=== PATIENT | female | born 1990 | race African-American/Black ===

== ENCOUNTER → 2018-06-16 | Outpatient (REF) | payer OTHER | LOC: M LAB REF 10:57 | PROVIDERS: ATTEND Advanced Practice Midwife | DX: Z12.4 Encounter for screening for malignant neoplasm of cervix (principal) ==

== ENCOUNTER → 2020-07-25 | Outpatient (REF) | payer OTHER | LOC: M SFHCWAGY 13:27 | PROVIDERS: ATTEND Advanced Practice Midwife | DX: Z12.4 Encounter for screening for malignant neoplasm of cervix (principal) ==

== ENCOUNTER → 2020-08-06 | Outpatient (CLI) | payer OTHER ==
[2020-08-06 10:35] LABS: BASO % 0.4 % (0.0-1.0); EOS # 0.1 10^3/uL (0.0-0.5); EOS % 0.7 % (0.0-3.0); HEMATOCRIT 36.3 % (36.0-47.0); LYMPH # 2.1 10^3/uL (1.5-5.0); LYMPH % 19.8 % (24.0-44.0); MEAN CORPUSCULAR HEMOGLOBIN 26.5 pg (27.0-33.0); MEAN CORPUSCULAR HGB CONC 33.1 g/dl (32.0-36.5); MEAN CORPUSCULAR VOLUME 80.1 fl (80.0-96.0); MONO # 0.7 10^3/uL (0.0-0.8); MONO % 6.2 % (2.0-8.0); NEUTROPHILS # 7.8 10^3/uL (1.5-8.5); NEUTROPHILS % 72.3 % (36.0-66.0); PLATELET COUNT, AUTOMATED 261 10^3/uL (150-450); RED BLOOD COUNT 4.53 10^6/uL (4.00-5.40); WHITE BLOOD COUNT 10.7 10^3/uL (4.0-10.0)
[2020-08-06 10:49] LABS: HEMOGLOBIN A1c 5.4 %
[2020-08-06 11:02] LABS: CREATININE,RANDOM URINE 78.9 MG/DL; TOTAL PROTEIN,RANDOM URINE 7.3 MG/DL (0.0-12.0)
[2020-08-06 11:04] LABS: ALT/SGPT 20 U/L (12-78); BILIRUBIN,TOTAL 0.8 MG/DL (0.2-1.0); CREATININE FOR GFR 0.61 MG/DL (0.55-1.30); GLOMERULAR FILTRATION RATE > 60.0 (>60); GLUCOSE CHALLENGE TEST 1 HOUR 95 MG/DL (LESS THAN 140); LDH LACTATE DEHYDROGENASE 169 U/L (84-246)
[2020-08-06 11:47] LABS: HEPATITIS C VIRUS ABY INDEX < 0.0 INDEX (<0.8); HIV 1&2 SCREEN CENTAUR NEGATIVE (NEGATIVE)
[2020-08-08 15:08] LABS: HSV TYPE I IgG SPECIFIC <0.91 index (0.00-0.90); HSV TYPE I IgM AB <1:10 titer (<1:10); HSV TYPE II IgG SPECIFIC >23.60 index (0.00-0.90); HSV TYPE II IgM ABY <1:10 titer (<1:10)
== END ==
LOC: M PLALAB 08:18
PROVIDERS: ATTEND Advanced Practice Midwife
DX: Z34.81 Encounter for supervision of other normal pregnancy, first trimester (principal); Z3A.01 Less than 8 weeks gestation of pregnancy

== ENCOUNTER → 2020-08-22 | Outpatient (REF) | payer OTHER | LOC: M SFHCWAGY 13:34 | PROVIDERS: ATTEND Advanced Practice Midwife | DX: O99.211 Obesity complicating pregnancy, first trimester (principal) ==

== ENCOUNTER → 2020-09-20 | Outpatient (REF) | payer OTHER | LOC: M SFHCWAGY 12:50 | PROVIDERS: ATTEND Advanced Practice Midwife | DX: O99.212 Obesity complicating pregnancy, second trimester (principal); E66.9 Obesity, unspecified; Z3A.00 Weeks of gestation of pregnancy not specified ==

== ENCOUNTER → 2020-10-11 | Outpatient (CLI) | payer OTHER ==
--- NOTE | 2020-10-11 09:07 | REP ---
INDICATION: ANATOMY. KASANDRA 10 March 2021. COMPARISON: None. TECHNIQUE: Transabdominal obstetric sonography. FINDINGS: Scanning through the gravid uterus demonstrates a viable single intrauterine gestation in cephalic lie. motion is observed and heart rate is recorded at 153 beats per minute. A posterior placenta is seen, grade 1, without evidence of placenta previa. Closed cervical length is measured at 3.5 cm transabdominally. No extrauterine abnormality is observed. Amniotic fluid is subjectively normal. Following anatomic structures are identified felt to be unremarkable: Facial profile, four-chamber heart with left and right ventricular outflow tract views, diaphragm, left-sided stomach, abdominal wall cord insertion, right and left kidney, urinary bladder, spine, upper and lower extremities, three-vessel cord. The following anatomic structures are less than optimally seen: cranium and intracranial contents, nose and lips.. Biometry chart: BPD 4.4 cm, 19 weeks 2 days Head circumference 16.9 cm, 19 weeks 4 days Abdominal circumference 13.6 cm, 19 weeks 0 days Femur length 2.8 cm, 18 weeks 3 days Humeral length 2.7 cm, 18 weeks 4 days HC AC ratio normal 1.24 Cephalic index normal 0.71 Estimated weight 261 g, 0 lb 9 oz, sixty-fourth percentile for 18 weeks 4 days IMPRESSION: Viable single intrauterine gestation at 19 weeks 0 days by today's composite sonographic criteria. KASANDRA by today's sonography 07 March 2021. No complication identified. Expected gestational age estimate based on known KASANDRA is 18 weeks 4 days KASANDRA 10 March 2021. Less than optimal visualize is a hansen of the cranium and nose and lips due to position.. <Electronically signed by Trevor Irizarry > 10/11/20 [id number]
== END ==
LOC: M WHC 07:59
PROVIDERS: ATTEND Advanced Practice Midwife
DX: Z34.82 Encounter for supervision of other normal pregnancy, second trimester (principal)

== ENCOUNTER → 2020-10-18 | Outpatient (CLI) | payer OTHER | LOC: M WHC 08:17 | PROVIDERS: ATTEND Obstetrics & Gynecology | DX: Z34.82 Encounter for supervision of other normal pregnancy, second trimester (principal); Z3A.19 19 weeks gestation of pregnancy ==

== ENCOUNTER → 2020-11-11 | Outpatient (CLI) | payer OTHER ==
--- NOTE | 2020-11-11 09:40 | REP ---
INDICATION: F/U ANATOMY COMPARISON: 10/11/2020 TECHNIQUE: Transabdominal obstetrical ultrasound with color Doppler evaluation. FINDINGS: Examination demonstrates a single live intrauterine in cephalic presentation. motion is identified by technologist. Placenta is noted posterior and grade 1 without evidence for placenta previa or abruption. Amniotic fluid volume is normal. Cervix measures 3.4 cm in length and appears closed.. Selected gestational age: 23 weeks 0 days with KASANDRA 03/10/2021. Gestational age by current measurements 23 weeks 5 days with KASANDRA 03/05/2021. FHR equals 140 beats per minute. Estimated weight 628 grams (57thpercentile). Anatomical assessment demonstrates normal structures including cranium, choroid plexus, cavum, cerebellum/posterior fossa, and nose/lips. IMPRESSION: Single live intrauterine in cephalic presentation demonstrating appropriate interval growth. In conjunction with prior examination anatomical assessment is complete and normal. <Electronically signed by Henry Aragon > 11/11/20 [id number]
== END ==
LOC: M WHC 08:02
PROVIDERS: ATTEND Obstetrics & Gynecology
DX: Z34.82 Encounter for supervision of other normal pregnancy, second trimester (principal)

== ENCOUNTER → 2020-11-25 | Outpatient (REF) | payer OTHER ==
[2020-11-25 15:04] LABS: HEMATOCRIT 32.5 % (36.0-47.0); HEMOGLOBIN 10.8 g/dl (12.0-15.5); MEAN CORPUSCULAR HEMOGLOBIN 27.8 pg (27.0-33.0); MEAN CORPUSCULAR HGB CONC 33.2 g/dl (32.0-36.5); MEAN CORPUSCULAR VOLUME 83.5 fl (80.0-96.0); PLATELET COUNT, AUTOMATED 230 10^3/uL (150-450); RED BLOOD COUNT 3.89 10^6/uL (4.00-5.40); WHITE BLOOD COUNT 11.7 10^3/uL (4.0-10.0)
== END ==
LOC: M PLALAB 08:39
PROVIDERS: ATTEND Specialist
DX: Z34.02 Encounter for supervision of normal first pregnancy, second trimester (principal)

== ENCOUNTER → 2021-02-14 | Outpatient (CLI) | payer OTHER ==
--- NOTE | 2021-02-14 15:29 | REP ---
INDICATION: GROWTH. COMPARISON: 11/11/2020. TECHNIQUE: Real-time sonographic evaluation of the gravid uterus performed. FINDINGS: Estimated gestational age is36 weeks 4 days , EDC 03/10/2021. Today's measurements indicate appropriate growth. Presentation: Cephalic Placenta posterior, grade 2, without evidence of placenta previa. heart rate is recorded at 144 beats per minute. Amniotic fluid is subjectively normal. LEE ANN 9.9, normal 7.6-24.6. Closed cervical length is measured at 3.8 cm. Biometry chart: BPD: 95 mm, 38 weeks 6 days, 81st percentile. HC: 335 mm, 38 weeks 2 days, 79th percentile AC: 351 mm, 39 weeks 0 days, 86th percentile Femur length: 75 mm, 38 weeks 4 days, 79th percentile HC to AC ratio: 0.95, normal range 0.92-1.11. Estimated weight: 3594g, greater than 97th percentile. IMPRESSION: Viable single intrauterine gestation as above. <Electronically signed by Vladimir Gandhi > 02/14/21 [id number]
== END ==
LOC: M WHC 14:27
PROVIDERS: ATTEND Obstetrics & Gynecology
DX: O26.843 Uterine size-date discrepancy, third trimester (principal); Z3A.36 36 weeks gestation of pregnancy

== ENCOUNTER → 2021-02-14 | Outpatient (REF) | payer OTHER | LOC: M SFHCWAGY 13:02 | PROVIDERS: ATTEND Obstetrics & Gynecology | DX: Z36.85 Encounter for antenatal screening for Streptococcus B (principal); Z3A.36 36 weeks gestation of pregnancy ==

== ENCOUNTER 2021-03-01 02:42 | Inpatient (IN) | payer OTHER ==
[~2021-03-01] VITALS: Ht 162.6 cm; Wt 133.6 kg
[2021-03-01] VITALS (52 sets, daily range): BP systolic 109–151; BP diastolic 56–99
[2021-03-01] MEDS ORDERED: ACYC1TAB PO (03:22)
[2021-03-01] MEDS ORDERED: VALT500T PO (03:22)
[2021-03-01] MEDS ORDERED: PRENTAB9 PO (03:24)
[2021-03-01] MEDS ORDERED: HOME MED LIST COMPLETE! XX SCH (03:25)
[2021-03-01] MEDS ORDERED: PENICILLIN G POTASSIUM IV 5 MU in D5W MINI-BAG PLUS 100 ML IV STA ×2 (03:52→06:45)
[2021-03-01] MEDS ORDERED: OXYTOCIN DRIP 30 UNITS in IV 1 EA IV SCH (03:55)
[2021-03-01] MEDS ORDERED: TRANEXAMIC ACID INJection 1,000 MG in NS 100 ML IV PRN (03:55)
[2021-03-01] MEDS ORDERED: CARBOPROST TROMETHAMINE 250 MCG/ML AMP IM PRN (03:55)
[2021-03-01] MEDS ORDERED: OXYTOCIN DRIP 30 UNITS in IV 1 EA IV PRN ×4 (03:55)
[2021-03-01] MEDS ORDERED: OXYTOCIN INJ 10 UNITS/ML VIAL (J2590) IM PRN (03:55)
[2021-03-01] MEDS ORDERED: METHYLERGONOVINE MALEATE 0.2 MG/ML VIAL (J2210) IM PRN (03:55)
[2021-03-01] MEDS ORDERED: LIDOCAINE 1% MDV 20ML VIAL INFIL PRN (03:55)
[2021-03-01 04:32] LABS: HEMATOCRIT 32.8 % (36.0-47.0); HEMOGLOBIN 10.9 g/dl (12.0-15.5); MEAN CORPUSCULAR HEMOGLOBIN 25.7 pg (27.0-33.0); MEAN CORPUSCULAR HGB CONC 33.2 g/dl (32.0-36.5); MEAN CORPUSCULAR VOLUME 77.4 fl (80.0-96.0); PLATELET COUNT, AUTOMATED 242 10^3/uL (150-450); RED BLOOD COUNT 4.24 10^6/uL (4.00-5.40); WHITE BLOOD COUNT 13.1 10^3/uL (4.0-10.0)
[2021-03-01] MEDS: LR 1,000 ML IV SCH ×2 (05:11→11:52)
[2021-03-01] MEDS ORDERED: PROMETHAZINE INJ 25 MG/ML VIAL (J2550) IV ONE (06:45)
[2021-03-01] MEDS ORDERED: BUTORPHANOL 2 MG/ML INJ (J0595) IV ONE (06:45)
[2021-03-01] MEDS ORDERED: PENICILLIN G POTASSIUM IV 2.5 MU in IV 1 EA IV SCH (07:55)
--- NOTE | 2021-03-01 08:33 | HPE ---
HISTORY AND PHYSICAL DATE OF ADMISSION: 03/01/2021 SUBJECTIVE: Itzel is a 30-year-old, 1, para 0, at 38 and 5/7 weeks gestation with an EDC of 03/10/2021 based on first trimester ultrasound. She presents to Labor and Delivery today with a reported onset of uncomfortable contractions at 0200 following a gush of fluid at 0145. She does deny vaginal bleeding. The fetus has been active. Her care was [facility] at [facility] in the first trimester. 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 She has been taking Valtrex prophylactically. Obesity. Large for gestational age fetus. GBS positive. OBSTETRIC HISTORY: Primigravida. OBSTETRIC LABS: B positive, antibody screen negative, syphilis negative, and chlamydia negative Hepatitis B negative. Hepatitis C negative. HIV negative. Rubella immune. Gestational diabetic screening normal at 113 and her GBS is positive. PAST MEDICAL HISTORY: 1. Obesity. 2. Polycystic ovarian syndrome. 3. Shingles. PAST SURGICAL HISTORY: 1. Gallbladder. 2. Nahma tooth extraction. FAMILY HISTORY: Diabetes, hypothyroid, reflux. SOCIAL HISTORY: The patient is a nonsmoker. She denies alcohol and drug use. History of HSV 2. Denies history of abuse, physical, sexual and emotional. ALLERGIES: No known drug allergies. CURRENT MEDICATIONS: vitamin. OBJECTIVE: Temp 98.9, pulse 106. BP is 125/80. She is alert and oriented x3. She does not appear uncomfortable with her contractions. The heart rate is 135 with moderate variability, positive accelerations, negative decelerations. Contractions are palpating mild and are every 2-4 minutes. Her abdomen is gravid, cephalic presentation. Estimated weight 4000 gm. Sterile speculum exam: Positive pooling, positive Valsalva, positive nitrazine and positive fern. Sterile vaginal exam: 1 cm dilated, 50% effaced, -3 station. ASSESSMENT: Intrauterine at 38-5/7 weeks. heart rate is category 1 with premature rupture of membranes, not in active labor. PLAN: Admit the patient to labor and delivery, out of bed ad chelle, clear liquid diet, routine laboratories. Plan to start IV Pitocin to induce her labor. Risks, benefits and alternatives have been reviewed with the patient and her partner. All of their questions have been answered. She has been verbally consented for emergency surgery and blood products if they are necessary. I do anticipate labor.
[2021-03-01] MEDS ORDERED: **PENDING PCN ENTRY XX SCH (09:00)
[2021-03-01] MEDS: PENICILLIN G POTASSIUM IV 2.5 MU in IV 1 EA IV SCH ×3 (11:02→18:45)
[2021-03-01] MEDS ORDERED: FENTANYL 2MCG/ML ROPIVACAINE 0.2% IN 0.9% NACL 100ML IVBAG As Ordered ONE ×2 (12:11→19:45)
[2021-03-01] MEDS ORDERED: ONDANSETRON 4MG/2ML VIAL IV PRN ×2 (13:00→23:40)
[2021-03-01] MEDS ORDERED: LACTATED RINGER'S 1000 ML IV PRN (13:00)
[2021-03-01] MEDS ORDERED: EPIDURAL COMMENT XX SCH (13:00)
[2021-03-01] MEDS ORDERED: FENTANYL/ROPIVACAINE/NACL BAG 100 ML EPIDURAL SCH (13:00)
[2021-03-01] MEDS ORDERED: EPIDURAL/PCA KEYS XX PRN (13:00)
[2021-03-01] MEDS ORDERED: ePHEDrine SULFATE 25 MG/5 ML(5MG/ML) SYRINGE IV PRN (13:00)
[2021-03-01] MEDS ORDERED: REFRIGERATOR IV KEYS XX PRN (13:00)
[2021-03-01] MEDS ORDERED: diphenhydrAMINE 50MG/ML VIAL (J1200) IV PRN (13:00)
[2021-03-01] MEDS ORDERED: NALOXONE INJ 0.4MG/1ML VIAL (J2310 PER 1MG) IV PRN (13:00)
--- NOTE | 2021-03-01 16:45 | IPNPDOC ---
Obstetrical Progress Note Date of Service Mar 01, 2021 Subjective pt is more comfortable s/p epidural Objective Vital Signs Date Time Temp Pulse Resp B/P (MAP) Pulse Ox O2 Delivery O2 Flow Rate FiO2 03/01/21 13:46 83 18 121/59 (79) 03/01/21 13:28 97.5 Assessment Heart Rate (FHR): 140 Variability: Moderate Accelerations: Present Decelerations: None Heart Rate Tracing: Category I Tocometer Contractions: Yes Frequency: regular, every 1-3 min. Sterile Vaginal Examination Dilation: 4 cm Effacement (%): 100% Station: -1, 0 Cervical Consistency: Soft Cervical Position: Anterior Postion/Presentation: Cephalic presentation Assessment and Plan Age: 30 : 1 Term: 0 Status: Reassuring Group B Streptococcus: Positive Anticipate: Vaginal Delivery Additional Comments con't expectant management EVER LAGOS MD Mar 01, 2021 16:45
[2021-03-01] MEDS ORDERED: ceFAZolin 2 GM/D5W 50 ML IV BAG (J0690 PER 500MG) As Ordered ONE (23:17)
[2021-03-01] MEDS ORDERED: OXYTOCIN 30 UNITS IN 0.9% NaCl 500ML IV BAG (J2590) As Ordered ONE (23:17)
[2021-03-01] MEDS ORDERED: RHOGAM 300 MCG (1500 IU) INJ (J2790) IM SCH (23:40)
[2021-03-01] MEDS ORDERED: METHYLERGONOVINE MALEATE 0.2 MG TAB PO PRN (23:40)
[2021-03-01] MEDS ORDERED: IBUPROFEN 600MG TAB PO PRN (23:40)
[2021-03-01] MEDS ORDERED: MEASLES,MUMPS,RUBELLA VACCINE INJ (MMR-II) (90707) SC SCH (23:40)
[2021-03-01] MEDS ORDERED: DIBUCAINE 1% OINTMENT 30GM TOP PRN (23:40)
[2021-03-01] MEDS ORDERED: ceFAZolin SOD 2 GM in IV 1 EA IV ONE (23:40)
[2021-03-01] MEDS ORDERED: DOCUSATE SODIUM 100MG CAPSULE PO PRN (23:40)
--- NOTE | 2021-03-01 23:56 | DNPDOC ---
[facility] Delivery Note Delivery Note DATE OF DELIVERY: 03/01/21 PREDELIVERY DIAGNOSIS: 38-5/7 weeks' gestation and labor. POST DELIVERY DIAGNOSIS: Delivered. PROCEDURE: Spontaneous vaginal delivery. CYLINDER GRINDER: Dr. Ever Lagos ANESTHESIA: epidural. ESTIMATED BLOOD LOSS: 500 mL. FINDINGS: 8 pound 4 ounce female infant, Score 7/9 DELIVERY SUMMARY: Patient is a 30-year-old 1 now para 1 who was admitted to labor and delivery for premature rupture of membranes. She was initially 1/50/-3 and was started on RDP due to the fact that she was having persistent contractions q2-3min. The patient progressed to 4/100/-1 and received an epidural. She then progressed nicely to fully dilated and began pushing with good effort at +2 station. With excellent maternal effort, the head was delivered in the WALESKA position, however, a shoulder dystocia was identified when the anterior shoulder failed to deliver with typcial maneuvers. The patient was immediately placed in Rich position and NICU support was called for. Suprapubic pressure was applied and the Wood's screw maneuver was applied. The anterior shoulder then delivered, and the body delivered atraumatically over an intact perineum. In total, this lasted 50 seconds. The cord was clamped and cut and the infant was handed to the baby nurse. Attention was turned to the patient and the placenta was delivered with expression and manual traction. However, trailing membranes were noted and brisk bleeding from the uterus occurred. Bimanual exam showed retained membranes which were removed from the posterior wall of the uterus. Methergine was given IM. The patient was noted to have a periclitoral tear which was repaired with 4.0 vicryl suture. 4cc of lidocaine were given. Sponge and sharp count correct. Good hemostasis and uterine tone noted. EVER LAGOS MD Mar 01, 2021 23:56
[2021-03-02] VITALS (8 sets, daily range): BP systolic 116–140; BP diastolic 60–89
[2021-03-02 06:49] LABS: HEMATOCRIT 26.2 % (36.0-47.0); MEAN CORPUSCULAR HGB CONC 33.6 g/dl (32.0-36.5); MEAN CORPUSCULAR VOLUME 77.3 fl (80.0-96.0); PLATELET COUNT, AUTOMATED 216 10^3/uL (150-450); RED BLOOD COUNT 3.39 10^6/uL (4.00-5.40); WHITE BLOOD COUNT 21.3 10^3/uL (4.0-10.0)
[2021-03-02 06:56] LABS: HEMOGLOBIN 8.8 g/dl (12.0-15.5)
[2021-03-02] MEDS: PRENATAL VITAMINS CHEWABLE TABLET PO SCH (08:00)
[2021-03-02] MEDS: ACETAMINOPHEN 500 MG TAB PO PRN ×2 (08:01→23:50)
--- NOTE | 2021-03-02 08:39 | IPNPDOC ---
Progress Note Date of Service: Mar 02, 2021 Day#: 1 Progress Note SUBJECT: Patient is a 30-year-old G 1 P 1 status post spontaneous vaginal delivery complicated by shoulder dystocia at 38 -5/7 weeks' doing well day #1. She has been ambulating, voiding spontaneously without issue and tolerating regular diet. Breast feeding without issue. Reports lochia is like a normal period. Patient is ambulating well. Reports some cramping, well controlled with medication. Voiding and ambulating without difficulty. Discussed shoulder dystocia with patient in detail including maneuvers used to deliver . Reviewed risk for future and discussed possibility of primary section for future pregnancies. All questions were asked and answered and patient expressed understanding. OBJECTIVE: VITAL SIGNS: Within normal limits, afebrile. Alert and oriented times three. Breath sounds clear to auscultation. Heart rate: Regular rate and rhythm, no murmurs, rubs or gallops. Abdomen: Fundus firm at U-2. Soft, NTTP. Minimal to moderate lochia. ASSESSMENT: Patient is a 30-year-old G 1 P 1 status post spontaneous vaginal delivery complicated by 52nd shoulder dystocia after presenting to labor and delivery with premature rupture of membranes. Doing well on day 1. Vitals within normal limits, afebrile, hemodynamically stable with no evidence of infection. PLAN: 1. Discharge to home tomorrow. 2. Tylenol and Motrin for pain. 3. Encourage breast feeding and ambulation. 4. Reviewed contraception and patient is still undecided 5. Routine PP visit in 6 weeks in clinic. 6. Discussed return precautions at length. VS, I&O, 24H, Arnel Vital Signs/I&O Vital Signs Date Time Temp Pulse Resp B/P (MAP) Pulse Ox O2 Delivery O2 Flow Rate FiO2 03/02/21 06:00 97.6 85 18 140/89 (106) 99 Room Air I&O- Last 24 Hours up to 6 AM 03/02/21 06:00 Intake Total 5375 ml Output Total 2500 ml Balance 2875 ml Laboratory Data 24H LABS Laboratory Tests 2 03/02/21 06:29: Nucleated Red Blood Cells % (auto) 0.0 CBC/BMP Laboratory Tests 03/02/21 06:29 EVER LAGOS MD Mar 02, 2021 08:39
[2021-03-02] MEDS ORDERED: PRENATAL VITAMINS CHEWABLE TABLET PO SCH (09:00)
[2021-03-03 06:00] VITALS: BP 124/67
[2021-03-03] MEDS ORDERED: INFLUENZA QUADRIVALENT PF VACCINE 0.5ML SYRINGE IM SCH (07:00)
[2021-03-03] MEDS: PRENATAL VITAMINS CHEWABLE TABLET PO SCH (09:17)
[2021-03-03] MEDS ORDERED: IBUP-1022 PO (11:10)
[2021-03-03] MEDS ORDERED: ACET-683 PO (11:10)
== END 2021-03-03 15:35 | disposition home or self-care (01) | DRG 541 ==
LOC: M LDO 02:42 → M LDI 03:45 → M OBS 03-02 01:50
PROVIDERS: ADMIT Advanced Practice Midwife; ATTEND Advanced Practice Midwife
PROC: 10E0XZZ Delivery of Products of Conception, External Approach (ICD-10-PCS; principal; 2021-03-01)
PROC: 10D17Z9 Manual Extraction of Products of Conception, Retained, Via Natural or Artificial Opening (ICD-10-PCS; 2021-03-01)
PROC: 0HQ9XZZ Repair Perineum Skin, External Approach (ICD-10-PCS; 2021-03-01)
DX: O42.02 Full-term premature rupture of membranes, onset of labor within 24 hours of rupture (principal); O72.2 Delayed and secondary postpartum hemorrhage; E66.9 Obesity, unspecified; O99.284 Endocrine, nutritional and metabolic diseases complicating childbirth; E28.2 Polycystic ovarian syndrome; Z37.0 Single live birth; Z3A.38 38 weeks gestation of pregnancy; O99.824 Streptococcus B carrier state complicating childbirth; O99.214 Obesity complicating childbirth; O66.0 Obstructed labor due to shoulder dystocia; O70.0 First degree perineal laceration during delivery

== ENCOUNTER → 2023-01-04 | Outpatient (CLI) | payer OTHER ==
[~2023-01-04] MED LIST: ACET-683 PO; ACYC1TAB PO; IBUP-1022 PO; PRENTAB9 PO; VALT500T PO
[2023-01-04 11:46] LABS: TOTAL PROTEIN,RANDOM URINE 7.1 MG/DL (0.0-14.0)
[2023-01-04 11:51] LABS: CREATININE,RANDOM URINE 137.6 MG/DL
== END ==
LOC: M PLALAB 08:20
PROVIDERS: ATTEND Obstetrics & Gynecology
DX: O10.919 Unspecified pre-existing hypertension complicating pregnancy, unspecified trimester (principal); Z3A.00 Weeks of gestation of pregnancy not specified

== ENCOUNTER → 2023-01-18 | Outpatient (CLI) | payer OTHER | LOC: M WHC 07:06 | PROVIDERS: ATTEND Obstetrics & Gynecology | DX: Z34.92 Encounter for supervision of normal pregnancy, unspecified, second trimester (principal) ==

== ENCOUNTER → 2023-02-11 | Outpatient (CLI) | payer OTHER ==
[2023-02-11 11:27] LABS: BASO % 0.3 % (0.0-1.0); EOS # 0.2 10^3/uL (0.0-0.5); EOS % 1.8 % (0.0-3.0); HEMATOCRIT 31.3 % (36.0-47.0); HEMOGLOBIN 10.4 g/dl (12.0-15.5); LYMPH # 2.2 10^3/uL (1.5-5.0); LYMPH % 19.7 % (24.0-44.0); MEAN CORPUSCULAR HEMOGLOBIN 26.3 pg (27.0-33.0); MEAN CORPUSCULAR HGB CONC 33.2 g/dl (32.0-36.5); MEAN CORPUSCULAR VOLUME 79.2 fl (80.0-96.0); MONO # 0.6 10^3/uL (0.0-0.8); MONO % 5.3 % (2.0-8.0); NEUTROPHILS # 8.3 10^3/uL (1.5-8.5); NEUTROPHILS % 72.5 % (36.0-66.0); PLATELET COUNT, AUTOMATED 224 10^3/uL (150-450); RED BLOOD COUNT 3.95 10^6/uL (4.00-5.40); WHITE BLOOD COUNT 11.4 10^3/uL (4.0-10.0)
[2023-02-11 11:49] LABS: THYROID STIMULATING HORMONE 0.961 uIU/ML (0.55-4.78)
[2023-02-11 11:52] LABS: ALKALINE PHOSPHATASE 82 U/L (46-116); ALT/SGPT 22 U/L (7.0-40); AST/SGOT 10 U/L (<34); BILIRUBIN,TOTAL 0.5 MG/DL (0.3-1.2); BLOOD UREA NITROGEN < 5 MG/DL (9-23); CALCIUM LEVEL 8.9 MG/DL (8.5-10.1); CARBON DIOXIDE LEVEL 24 MMOL/L (20-31); CHLORIDE LEVEL 106 MMOL/L (98-107); CHOLESTEROL LEVEL 182 MG/DL (<200); CHOLESTEROL RISK RATIO 2.91 (<5); CREATININE FOR GFR 0.54 MG/DL (0.55-1.30); GLOMERULAR FILTRATION RATE > 60.0 (>60); GLUCOSE, FASTING 71 MG/DL (60-100); HDL CHOLESTEROL 62.4 MG/DL (>40); LDL CHOLESTEROL 95.6 MG/DL (<100); NON-HDL-C 119.6 MG/DL; SODIUM LEVEL 138 MMOL/L (136-145); TOTAL PROTEIN 6.3 G/DL (5.7-8.2); TRIGLYCERIDES LEVEL 120 MG/DL (<150)
== END ==
LOC: M PLALAB 09:00
PROVIDERS: ATTEND Physician Assistant
DX: I10 Essential (primary) hypertension (principal); E78.2 Mixed hyperlipidemia

== ENCOUNTER → 2023-03-16 | Outpatient (CLI) | payer OTHER | LOC: M WHC 09:24 | PROVIDERS: ATTEND Obstetrics & Gynecology | DX: Z34.82 Encounter for supervision of other normal pregnancy, second trimester (principal) ==

== ENCOUNTER → 2023-03-16 | Outpatient (CLI) | payer OTHER ==
[2023-03-16 14:21] LABS: HEMOGLOBIN 10.1 g/dl (12.0-15.5); MEAN CORPUSCULAR HEMOGLOBIN 25.9 pg (27.0-33.0); MEAN CORPUSCULAR HGB CONC 32.6 g/dl (32.0-36.5); MEAN CORPUSCULAR VOLUME 79.5 fl (80.0-96.0); PLATELET COUNT, AUTOMATED 232 10^3/uL (150-450)
[2023-03-16 16:09] LABS: GC DNA AMPLIFICATION NEGATIVE (NEGATIVE)
== END ==
LOC: M PLALAB 10:33
PROVIDERS: ATTEND Obstetrics & Gynecology
DX: Z34.92 Encounter for supervision of normal pregnancy, unspecified, second trimester (principal)

== ENCOUNTER → 2023-05-10 | Outpatient (CLI) | payer OTHER | LOC: M RAD 11:13 | PROVIDERS: ATTEND Obstetrics & Gynecology | DX: O10.913 Unspecified pre-existing hypertension complicating pregnancy, third trimester (principal); Z3A.35 35 weeks gestation of pregnancy ==

== ENCOUNTER → 2023-05-12 | Outpatient (REF) | payer OTHER | LOC: M PLALAB 11:02 | PROVIDERS: ATTEND Advanced Practice Midwife | DX: Z36.85 Encounter for antenatal screening for Streptococcus B (principal); Z34.93 Encounter for supervision of normal pregnancy, unspecified, third trimester ==

== ENCOUNTER 2023-06-01 07:30 | Inpatient (IN) | payer OTHER ==
[~2023-06-01] VITALS: Ht 160 cm; Wt 138.6 kg
[~2023-06-01 07:30] MED LIST changes: +COLA100C5 PO; +ECOT81TA5 PO; +IRON65TA2 PO; +LABE100T71 PO
[2023-06-03] VITALS (18 sets, daily range): BP systolic 116–141; BP diastolic 57–82; TEMP 97.1; O2SAT 95–99
[2023-06-03] MEDS ORDERED: LACTATED RINGER'S 1000 ML IV STA (05:27)
[2023-06-03] MEDS ORDERED: LR 1,000 ML IV SCH ×2 (05:30→09:40)
[2023-06-03] MEDS ORDERED: BICITRA 30ML SOLN UDC PO ONE (05:30)
[2023-06-03] MEDS ORDERED: ceFAZolin SOD 3 GM IV Place Holder IV ONE (05:30)
[2023-06-03] MEDS ORDERED: ceFAZolin SOD 2 GM in IV 1 EA IV ONE (05:45)
[2023-06-03] MEDS ORDERED: ceFAZolin SOD 1 GM in D5W MINI-BAG PLUS 50 ML IV ONE (05:45)
[2023-06-03 06:42] LABS: HEMATOCRIT 30.5 % (36.0-47.0); HEMOGLOBIN 10.3 g/dl (12.0-15.5); MEAN CORPUSCULAR HEMOGLOBIN 25.9 pg (27.0-33.0); MEAN CORPUSCULAR HGB CONC 33.8 g/dl (32.0-36.5); MEAN CORPUSCULAR VOLUME 76.8 fl (80.0-96.0); PLATELET COUNT, AUTOMATED 226 10^3/uL (150-450); RED BLOOD COUNT 3.97 10^6/uL (4.00-5.40); WHITE BLOOD COUNT 12.2 10^3/uL (4.0-10.0)
[2023-06-03] MEDS ORDERED: VALA1TAB5 PO (06:46)
[2023-06-03] MEDS ORDERED: MORPHINE PRES-FREE INJ 10 MG/10 ML VIAL As Ordered ONE (07:31)
[2023-06-03] MEDS ORDERED: OXYTOCIN 30UNITS IN 0.9% NaCl 500ML IV BAG As Ordered ONE ×2 (07:33→09:47)
[2023-06-03] MEDS ORDERED: **NOTE PATIENT COMMENT** MISC XX SCH ×2 (08:05→21:00)
[2023-06-03] MEDS ORDERED: NALOXONE INJ 0.4MG/1ML VIAL IV PRN ×2 (08:05)
[2023-06-03] MEDS ORDERED: diphenhydrAMINE 50MG/ML VIAL IV PRN (08:05)
[2023-06-03] MEDS ORDERED: ONDANSETRON 4MG 2ML VIAL IV PRN ×2 (08:05→09:40)
[2023-06-03] MEDS ORDERED: oxyCODONE 5MG TAB PO PRN (08:05)
[2023-06-03] MEDS ORDERED: fentaNYL 100 MCG/2 ML INJECTION IV PRN (08:05)
[2023-06-03] MEDS ORDERED: METOCLOPRAMIDE INJ 10MG/2ML VIAL IV PRN ×2 (08:05)
[2023-06-03] MEDS ORDERED: KETOROLAC 60MG 2ML VIAL As Ordered ONE (08:20)
[2023-06-03] MEDS ORDERED: ONDANSETRON 4MG 2ML VIAL As Ordered ONE (08:20)
[2023-06-03] MEDS ORDERED: ACETAMINOPHEN 1000MG 100ML IV BAG As Ordered ONE (08:21)
[2023-06-03] MEDS: SLF 3 ML SYR IV SCH ×2 (08:30→16:07)
[2023-06-03] MEDS ORDERED: PHENYLephrine 500MCG 5ML (100MCG/ML) SYRINGE As Ordered ONE (08:37)
[2023-06-03] MEDS: LABETALOL 100MG TAB PO SCH ×2 (09:00→21:07)
[2023-06-03] MEDS ORDERED: MORPHINE 4 MG/ML 1ML VIAL IV PRN (09:40)
[2023-06-03] MEDS ORDERED: METHYLERGONOVINE MALEATE 0.2MG/ML 1ML VIAL IM PRN (09:40)
[2023-06-03] MEDS ORDERED: RHOGAM 300MCG (1500IU) INJ IM SCH (09:40)
[2023-06-03] MEDS ORDERED: ANUSOL HC CREAM 30GM TOP PRN (09:40)
[2023-06-03] MEDS ORDERED: SIMETHICONE 80MG CHEW TAB PO PRN (09:40)
[2023-06-03] MEDS ORDERED: PERCOCET 5MG/325MG TAB PO PRN (09:40)
[2023-06-03] MEDS ORDERED: OXYTOCIN DRIP 30 UNITS in IV 1 EA IV SCH (09:40)
[2023-06-03] MEDS ORDERED: COLA100C5 PO (09:55)
[2023-06-03] MEDS ORDERED: IBUP80TA PO (09:55)
[2023-06-03] MEDS ORDERED: PERCOCET PO (09:55)
[2023-06-03 10:11] LABS: HEMATOCRIT 32.7 % (36.0-47.0); HEMOGLOBIN 10.1 g/dl (12.0-15.5); MEAN CORPUSCULAR HEMOGLOBIN 25.8 pg (27.0-33.0); MEAN CORPUSCULAR HGB CONC 30.9 g/dl (32.0-36.5); MEAN CORPUSCULAR VOLUME 83.6 fl (80.0-96.0); PLATELET COUNT, AUTOMATED 197 10^3/uL (150-450); RED BLOOD COUNT 3.91 10^6/uL (4.00-5.40)
[2023-06-03 10:53] LABS: CREATININE FOR GFR 0.53 MG/DL (0.55-1.30); GLOMERULAR FILTRATION RATE > 60.0 (>60)
[2023-06-03] MEDS: KETOROLAC 30 MG/ML 1ML VIAL IV SCH ×2 (16:03→21:07)
[2023-06-03] MEDS: ENOXAPARIN 30MG/0.3ML SYRINGE (J1650 PER 10MG) SC SCH (21:00)
[2023-06-03] MEDS: DOCUSATE SODIUM 100MG CAPSULE PO SCH (21:06)
[2023-06-04] MEDS: SLF 3 ML SYR IV SCH (00:30)
[2023-06-04 02:00] VITALS: BP 125/58; O2SAT 98
[2023-06-04] MEDS: KETOROLAC 30 MG/ML 1ML VIAL IV SCH (03:05)
[2023-06-04 06:00] VITALS: BP 112/56; O2SAT 97
[2023-06-04 07:24] LABS: MEAN CORPUSCULAR HGB CONC 33.3 g/dl (32.0-36.5); PLATELET COUNT, AUTOMATED 201 10^3/uL (150-450); RED BLOOD COUNT 3.46 10^6/uL (4.00-5.40); WHITE BLOOD COUNT 13.3 10^3/uL (4.0-10.0)
[2023-06-04] MEDS: ENOXAPARIN 30MG/0.3ML SYRINGE (J1650 PER 10MG) SC SCH ×2 (09:51→20:22)
[2023-06-04] MEDS: PRENATAL VITAMINS CHEWABLE TABLET PO SCH (09:52)
[2023-06-04] MEDS: DOCUSATE SODIUM 100MG CAPSULE PO SCH ×2 (09:52→20:22)
[2023-06-04] MEDS: LABETALOL 100MG TAB PO SCH ×2 (09:54→20:23)
[2023-06-04 10:00] VITALS: BP 115/55; O2SAT 100
[2023-06-04] MEDS: IBUPROFEN 800 MG TAB PO SCH ×2 (11:30→17:59)
[2023-06-04 18:00] VITALS: BP 115/52; O2SAT 99
[2023-06-04] MEDS: PERCOCET 5MG/325MG TAB PO PRN (19:21)
[2023-06-04 22:00] VITALS: BP 131/67; O2SAT 97
[2023-06-05 02:00] VITALS: BP 123/67; O2SAT 97
[2023-06-05] MEDS: IBUPROFEN 800 MG TAB PO SCH ×2 (03:41→11:20)
[2023-06-05 05:50] VITALS: BP 130/75; O2SAT 99
[2023-06-05] MEDS ORDERED: INFLUENZA QUADRIVALENT PF VACCINE 0.5ML SYRINGE IM.IMMUN ONE (09:00)
[2023-06-05] MEDS ORDERED: MEASLES,MUMPS,RUBELLA VACCINE INJ (MMR-II) SC.IMMUN ONE (09:00)
[2023-06-05] MEDS: PRENATAL VITAMINS CHEWABLE TABLET PO SCH (09:06)
[2023-06-05] MEDS: DOCUSATE SODIUM 100MG CAPSULE PO SCH (09:06)
[2023-06-05 09:07] VITALS: BP 130/75
[2023-06-05] MEDS: LABETALOL 100MG TAB PO SCH (09:07)
[2023-06-05] MEDS: ENOXAPARIN 30MG/0.3ML SYRINGE (J1650 PER 10MG) SC SCH (09:08)
[2023-06-05] MEDS: PERCOCET 5MG/325MG TAB PO PRN (09:17)
[2023-06-05 10:00] VITALS: BP 122/77; O2SAT 100
== END 2023-06-05 14:35 | disposition home or self-care (01) | DRG 540 ==
LOC: M LDI 06-03 05:25 → M OBS 06-03 10:43
PROVIDERS: ADMIT Obstetrics & Gynecology; ATTEND Obstetrics & Gynecology
PROC: 0UB70ZZ Excision of Bilateral Fallopian Tubes, Open Approach (ICD-10-PCS; 2023-06-03)
PROC: 10D00Z1 Extraction of Products of Conception, Low, Open Approach (ICD-10-PCS; principal; 2023-06-03 07:30)
DX: O10.92 Unspecified pre-existing hypertension complicating childbirth (principal); Z68.43 Body mass index [BMI] 50.0-59.9, adult; E66.9 Obesity, unspecified; O99.214 Obesity complicating childbirth; Z37.0 Single live birth; Z87.59 Personal history of other complications of pregnancy, childbirth and the puerperium; Z30.2 Encounter for sterilization

== ENCOUNTER → 2023-10-05 | Outpatient (REF) | payer OTHER ==
[~2023-10-05] MED LIST changes: +IBUP80TA PO; +LABE100T40 PO; -LABE100T71 PO; +PERCOCET PO; +VALA1TAB5 PO
== END ==
LOC: M SFHCWAGY 14:52
PROVIDERS: ATTEND Obstetrics & Gynecology
DX: Z12.4 Encounter for screening for malignant neoplasm of cervix (principal); Z01.419 Encounter for gynecological examination (general) (routine) without abnormal findings; Z77.9 Other contact with and (suspected) exposures hazardous to health

== ENCOUNTER → 2024-09-25 | Outpatient (CLI) | payer OTHER | LOC: M WUC 14:41 | PROVIDERS: ATTEND Nurse Practitioner Family | DX: R05.9 Cough, unspecified (principal) ==

== ENCOUNTER → 2024-10-05 | Outpatient (REF) | payer OTHER ==
[2024-10-07 14:44] LABS: HPV APTIMA Not Detected (Not Detected)
== END ==
LOC: M SFHCWAGY 15:24
PROVIDERS: ATTEND Obstetrics & Gynecology
DX: Z12.4 Encounter for screening for malignant neoplasm of cervix (principal); A59.9 Trichomoniasis, unspecified
CPT/HCPCS: 87624; G0123